=== PATIENT | male | born 1940 | race Caucasian/White ===

== ENCOUNTER 2017-07-16 21:19 | Emergency (ER) | payer MEDICARE, OTHER ==
[~2017-07-16] VITALS: Ht 177.8 cm; Wt 87.4 kg
[~2017-07-16 21:19] MED LIST: ALLOPURINOL100 MG PO; AMARYL1 M1 PO; AMLODIPINE5 MG PO; AVELOX400 MG PO; CEPHALEXIN500 MG PO; LISINOPRIL5 MG PO; METFORMIN500 MG PO; MUCINEX600 MG PO; MUPIROCIN2 % EX; PRAVASTATIN SOD20 MG PO
[2017-07-16] MEDS ORDERED: ALLOPURINOL100 MG PO (21:54)
[2017-07-16] MEDS ORDERED: GLIMEPIRIDE2 MG PO (21:56)
[2017-07-16] MEDS ORDERED: FISH OIL1 CAP PO (21:59)
[2017-07-16] MEDS ORDERED: IRON45 MG PO (22:00)
[2017-07-16] MEDS ORDERED: ALPHA LIPOIC600 MG PO (22:01)
[2017-07-16] MEDS ORDERED: VITAMIN B-121000 MCG PO (22:01)
[2017-07-16 22:20] LABS: HEMOGLOBIN 13.2 g/dl (14.0-18.0); IMMATURE GRANULOCYTES 0.3 % (0.0-1.0); MEAN CORPUSCULAR HGB 29.8 pG CALC (26.0-32.0); MEAN CORPUSCULAR HGB CONC 33.8 g/L CALC (32.0-36.0); NEUT# 3.99 thou/uL (1.82-7.42); RED BLOOD COUNT 4.43 mill/uL (4.70-6.10); RED CELL DISTRI WIDTH 13.6 % (11.5-15.5)
[2017-07-16 22:32] LABS: ALKALINE PHOSPHATASE 89 u/l (38-126); ANION GAP 15 (6-22 (CALC)); BILIRUBIN, TOTAL 0.4 mg/dL (0.0-1.4); BUN 17 mg/dL (8-23); BUN/CREATININE RATIO 16 (12-20 (CALC)); CARBON DIOXIDE 28 mmol/l (22-30); CHLORIDE 104 mmol/l (95-108); CREATININE 1.1 mg/dL (0.7-1.3); GFR > 60 ML/MIN (>=60 (CALC)); GFR FOR AFR.AMER. > 60 ML/MIN (>=60 (CALC)); SGOT/AST 18 u/l (19-48); SGPT/ALT 24 u/l (11-66); SODIUM 143 mmol/l (137-146)
[2017-07-16 22:37] LABS: INFLUENZA A NONE DETECTED (NONE DETECT); INFLUENZA B NONE DETECTED (NONE DETECT)
[2017-07-16 22:44] LABS: MYOGLOBIN 42 ng/mL (0 - 121)
[2017-07-16] MEDS ORDERED: AMOXICILLIN500 MG PO (23:35)
[2017-07-16] MEDS ORDERED: CODEINE/GUAIFEN1 SOL PO (23:35)
[2017-07-16] MEDS ORDERED: PROVENTIL HFA IN (23:35)
[2017-07-16 23:59] VITALS: BP 134/67
[2017-07-18] MEDS ORDERED: ZPAK PO (07:35)
== END 2017-07-16 23:57 | disposition home or self-care (01) ==
LOC: ED 21:19
PROVIDERS: Emergency Medicine
DX: J40 Bronchitis, not specified as acute or chronic (principal); R05 Cough; R50.9 Fever, unspecified; R06.2 Wheezing; I10 Essential (primary) hypertension; R09.89 Other specified symptoms and signs involving the circulatory and respiratory systems; Z85.6 Personal history of leukemia

== ENCOUNTER 2018-06-06 12:41 | Emergency (ER) | payer MEDICARE, OTHER ==
[~2018-06-06] VITALS: Ht 177.8 cm; Wt 90.0 kg
[~2018-06-06 12:41] MED LIST changes: +ALPHA LIPOIC600 MG PO; +AMOXICILLIN500 MG PO; +CODEINE/GUAIFEN1 SOL PO; +FISH OIL1 CAP PO; +GLIMEPIRIDE2 MG PO; +IRON45 MG PO; +PROVENTIL HFA IN; +VITAMIN B-121000 MCG PO; +ZPAK PO
[2018-06-06] MEDS ORDERED: PROAIR HFA108 MCG/AC IN (15:10)
[2018-06-06] MEDS ORDERED: AUGMENTIN875TAB PO (15:10)
[2018-06-06] MEDS ORDERED: ZITHROMAX500 MG PO (15:10)
[2018-06-06 15:30] VITALS: BP 132/77
== END 2018-06-06 15:30 | disposition home or self-care (01) ==
LOC: ED 12:41
DX: J18.9 Pneumonia, unspecified organism (principal); E11.9 Type 2 diabetes mellitus without complications; I10 Essential (primary) hypertension; C95.90 Leukemia, unspecified not having achieved remission; Z92.21 Personal history of antineoplastic chemotherapy

== ENCOUNTER → 2018-07-13 | Outpatient (REF) | payer MEDICARE, OTHER ==
[~2018-07-13] MED LIST changes: +AUGMENTIN875TAB PO; +PROAIR HFA108 MCG/AC IN; +ZITHROMAX500 MG PO
== END | disposition home or self-care (01) ==
LOC: LAB 07:46
PROVIDERS: ATTEND Surgery
DX: R97.20 Elevated prostate specific antigen [PSA] (principal); Z87.442 Personal history of urinary calculi; Z68.27 Body mass index [BMI] 27.0-27.9, adult

== ENCOUNTER 2018-09-05 07:57 | Emergency (ER) | payer MEDICARE, OTHER ==
[~2018-09-05] VITALS: Ht 177.8 cm; Wt 90.0 kg
[2018-09-05 09:12] LABS: HEMATOCRIT 38.9 % (39.0-50.0); HEMOGLOBIN 12.5 g/dl (14.0-18.0); IMMATURE GRANULOCYTES 0.8 % (0.0-5.0); MEAN CELL VOLUME 86.4 fL CALC (80.0-100.0); MEAN CORPUSCULAR HGB 27.8 pG CALC (26.0-32.0); MEAN CORPUSCULAR HGB CONC 32.1 g/L CALC (32.0-36.0); NEUT# 3.11 thou/uL (1.82-7.42); RED BLOOD COUNT 4.5 mill/uL (4.70-6.10); RED CELL DISTRI WIDTH 14.2 % (11.5-15.5)
[2018-09-05 09:29] LABS: ALBUMIN 4.2 g/dL (3.2-5.0); ALKALINE PHOSPHATASE 70 u/l (38-126); ANION GAP 15 (6-22 (CALC)); BILIRUBIN, TOTAL 0.5 mg/dL (0.0-1.4); BUN 21 mg/dL (8-23); BUN/CREATININE RATIO 23 (12-20 (CALC)); CARBON DIOXIDE 25 mmol/l (22-30); CHLORIDE 105 mmol/l (95-108); CPK 24 u/l (52-200); CREATININE 0.9 mg/dL (0.7-1.3); GFR > 60 ML/MIN (>=60 (CALC)); GFR FOR AFR.AMER. > 60 ML/MIN (>=60 (CALC)); POTASSIUM 4.4 mmol/l (3.5-5.1); SGOT/AST 19 u/l (19-48); SODIUM 140 mmol/l (137-146); TOTAL PROTEIN 6.3 g/dL (6.3-8.2)
[2018-09-05 11:20] VITALS: BP 136/66
== END 2018-09-05 11:20 | disposition home or self-care (01) ==
LOC: ED 07:57
PROVIDERS: Emergency Medicine
DX: R51 Headache (principal); M25.511 Pain in right shoulder; E11.9 Type 2 diabetes mellitus without complications; I10 Essential (primary) hypertension

== ENCOUNTER 2019-08-06 | Emergency (ER) | payer MEDICARE, OTHER ==
[2019-08-06 20:32] LABS: IMMATURE GRANULOCYTES 0.4 % (0.0-5.0); MEAN CELL VOLUME 92.4 fL CALC (80.0-100.0); MEAN CORPUSCULAR HGB CONC 32.4 g/L CALC (32.0-36.0); NEUT# 3.99 thou/uL (1.82-7.42); RED BLOOD COUNT 3.17 mill/uL (4.70-6.10); RED CELL DISTRI WIDTH 18.7 % (11.5-15.5)
[2019-08-06 20:34] LABS: HEMATOCRIT 29.3 % (39.0-50.0); HEMOGLOBIN 9.5 g/dl (14.0-18.0)
[2019-08-06 21:01] LABS: ALBUMIN 3.5 g/dL (3.2-5.0); ALKALINE PHOSPHATASE 80 u/l (38-126); ANION GAP 13 (6-22 (CALC)); BILIRUBIN, TOTAL 0.5 mg/dL (0.0-1.4); BUN 21 mg/dL (8-23); BUN/CREATININE RATIO 19 (12-20 (CALC)); CARBON DIOXIDE 27 mmol/l (22-30); CHLORIDE 105 mmol/l (95-108); CREATININE 1.1 mg/dL (0.7-1.3); GFR > 60 ML/MIN (>=60 (CALC)); GFR FOR AFR.AMER. > 60 ML/MIN (>=60 (CALC)); POTASSIUM 4.5 mmol/l (3.5-5.1); SGOT/AST 32 u/l (19-48); SODIUM 140 mmol/l (137-146); TOTAL PROTEIN 5.8 g/dL (6.3-8.2)
[2019-08-06 21:03] LABS: ACT PARTIAL THROMBO TIME 26.1 SECONDS (20.0-32.5); INTERNATIONAL NORMALIZED RATIO 0.9 RATIO (0.7-1.3); PROTHROMBIN TIME 9.7 SECONDS (9.0-12.5)
[2019-08-06 21:14] LABS: MYOGLOBIN 34 ng/mL (0 - 121)
[2019-08-06] MEDS ORDERED: LOTRIMIN AF21 EX (21:25)
== END 2019-08-06 21:30 | disposition home or self-care (01) ==
PROVIDERS: Emergency Medicine
DX: R21 Rash and other nonspecific skin eruption (principal); C91.10 Chronic lymphocytic leukemia of B-cell type not having achieved remission; E11.9 Type 2 diabetes mellitus without complications; I10 Essential (primary) hypertension; Z79.84 Long term (current) use of oral hypoglycemic drugs; Z79.899 Other long term (current) drug therapy

== ENCOUNTER 2019-08-13 16:29 | Emergency (ER) | payer MEDICARE, OTHER ==
[~2019-08-13 16:29] MED LIST changes: +LOTRIMIN AF21 EX
[2019-08-13 18:10] VITALS: BP 117/69
== END 2019-08-13 18:10 | disposition home or self-care (01) ==
LOC: ED 16:29
DX: L50.9 Urticaria, unspecified (principal); E11.9 Type 2 diabetes mellitus without complications; I10 Essential (primary) hypertension; C95.90 Leukemia, unspecified not having achieved remission; Z79.84 Long term (current) use of oral hypoglycemic drugs

== ENCOUNTER → 2021-01-24 | Outpatient (REF) | payer MEDICARE, OTHER | END | disposition home or self-care (01) | LOC: LAB 06:42 | PROVIDERS: ATTEND Surgery | DX: R97.20 Elevated prostate specific antigen [PSA] (principal); Z87.442 Personal history of urinary calculi; N40.0 Benign prostatic hyperplasia without lower urinary tract symptoms; Z68.25 Body mass index [BMI] 25.0-25.9, adult ==